=== PATIENT | female | born 2000 | race Two or more races ===

== ENCOUNTER 2020-05-31 11:27 | Observation (INO) | payer SELFPAY ==
[2020-05-31] MEDS ORDERED: PREN-96 PO (13:08)
== END 2020-05-31 13:52 | disposition home or self-care (01) ==
LOC: LDRP 11:27
PROVIDERS: ADMIT Obstetrics & Gynecology; ATTEND Obstetrics & Gynecology
DX: O60.03 Preterm labor without delivery, third trimester (principal); O26.893 Other specified pregnancy related conditions, third trimester; R10.2 Pelvic and perineal pain; Z3A.31 31 weeks gestation of pregnancy
CPT/HCPCS: 59025; 76815; 76817; 81002; G0378

== ENCOUNTER 2020-06-14 11:40 | Observation (INO) | payer SELFPAY ==
[~2020-06-14] VITALS: Ht 30.5 cm; Wt 0.5 kg
[~2020-06-14 11:40] MED LIST: PREN-96 PO
[2020-06-14] MEDS ORDERED: LACTATED RINGER'S 1,000 ML IV ONE (12:30)
[2020-06-14 13:24] LABS: Urine Bacteria MOD /hpf (None Seen); Urine Blood Negative /uL (Negative); Urine Mucus FEW (None Seen); Urine Specific Gravity 1.016 (1.001-1.035); Urine WBC 1 /hpf (0 - 5)
[2020-06-14 13:46] LABS: Basophils # (auto) 0 10 ^3/uL (0-0.2); Basophils % (auto) 0.5 % (0.0-2.0); Eosinophils # (auto) 0 10 ^3/uL (0-0.8); Eosinophils % (auto) 0.5 % (0.0-7.0); Hemoglobin 12.1 g/dL (12.2-16.2); Lymphocytes # (auto) 1.3 10 ^3/uL (0.4-5.4); Lymphocytes % (auto) 26.1 % (10.0-50.0); Mean Corpuscular Hemoglobin 33.6 pg (28.0-32.0); Mean Corpuscular Hgb Conc. 34.6 g/dL (32.0-36.0); Monocytes # (auto) 0.5 10 ^3/uL (0-1.3); Monocytes % (auto) 9.6 % (0.0-12.0); Neutrophils # (auto) 3.1 10 ^3/uL (1.6-8.6); Neutrophils % (auto) 63.3 % (37.0-80.0); Nucleated Red Blood Cells % 0.1 %; Platelet Count (auto) 167 10^3/uL (140-450); Red Cell Distribution Width 13.5 % (11.8-14.3); White Blood Cell 4.9 10^3/uL (4.4-10.8)
[2020-06-14 14:01] LABS: INR 0.92 (0.9-1.15); Partial Thromboplastin Time 24.2 sec (23.0-31.2)
[2020-06-14 14:19] LABS: Albumin 2.2 g/dL (3.4-5.0); Calcium 8.3 mg/dL (8.5-10.1); Potassium 4.2 mmol/L (3.5-5.1)
[2020-06-14 14:24] LABS: BUN/Creatinine Ratio 9.8; Bilirubin, Total 0.2 mg/dL (0.2-1.0); Total Protein 5.9 g/dL (6.4-8.2); Uric Acid 3.1 mg/dL (2.6-6.0)
[2020-06-14] MEDS ORDERED: TERBUTALINE SULFATE 1 MG/ML 1ML VIAL SC ONE (15:28)
[2020-06-14] MEDS: TERBUTALINE SULFATE 1 MG/ML 1ML VIAL SC SCH ×2 (15:31→15:57)
== END 2020-06-14 17:30 | disposition home or self-care (01) ==
LOC: LDRP 11:40
PROVIDERS: ADMIT Specialist; ATTEND Specialist
DX: O13.3 Gestational [pregnancy-induced] hypertension without significant proteinuria, third trimester (principal); Z20.828 Contact with and (suspected) exposure to other viral communicable diseases; O26.893 Other specified pregnancy related conditions, third trimester; R10.2 Pelvic and perineal pain; Z3A.33 33 weeks gestation of pregnancy
CPT/HCPCS: 36415; 59025; 80053; 81001; 81002; 84550; 85025; 85610; 85730; 87426; 96372; G0378; J3105; U0003; 96365

== ENCOUNTER → 2020-07-07 | Outpatient (CLI) | payer MEDICAID ==
[2020-07-07 11:11] LABS: Amphetamine Screen, Urine NEGATIVE (NEGATIVE); Barbiturate Scree,Urine NEGATIVE (NEGATIVE); Benzodiazephine Screen, Urine NEGATIVE (NEGATIVE); Cannabinoid Screen, Urine NEGATIVE (NEGATIVE); Cocaine Screen, Urine NEGATIVE (NEGATIVE); Opiate Scree,Urine NEGATIVE (NEGATIVE); Phencyclidine Screen, Urine NEGATIVE (NEGATIVE)
[2020-07-07 11:29] LABS: Basophils # (auto) 0 10 ^3/uL (0-0.2); Basophils % (auto) 0.6 % (0.0-2.0); Eosinophils # (auto) 0 10 ^3/uL (0-0.8); Eosinophils % (auto) 0.6 % (0.0-7.0); Hematocrit 39.6 % (36.0-46.0); Hemoglobin 13.9 g/dL (12.2-16.2); Lymphocytes # (auto) 1.5 10 ^3/uL (0.4-5.4); Lymphocytes % (auto) 27.1 % (10.0-50.0); Mean Corpuscular Hemoglobin 33.1 pg (28.0-32.0); Mean Corpuscular Hgb Conc. 35.1 g/dL (32.0-36.0); Mean Corpuscular Volume 94.4 fL (80.0-100.0); Monocytes # (auto) 0.5 10 ^3/uL (0-1.3); Monocytes % (auto) 8.2 % (0.0-12.0); Neutrophils # (auto) 3.5 10 ^3/uL (1.6-8.6); Neutrophils % (auto) 63.5 % (37.0-80.0); Nucleated Red Blood Cells % 0.1 %; Platelet Count (auto) 205 10^3/uL (140-450); Red Cell Distribution Width 13.7 % (11.8-14.3); White Blood Cell 5.6 10^3/uL (4.4-10.8)
[2020-07-08 05:07] LABS: RPR Non Reactive (Non Reactive)
== END | disposition home or self-care (01) ==
LOC: LAB 10:24
PROVIDERS: ATTEND Obstetrics & Gynecology
DX: Z34.93 Encounter for supervision of normal pregnancy, unspecified, third trimester (principal); Z31.430 Encounter of female for testing for genetic disease carrier status for procreative management; Z36.9 Encounter for antenatal screening, unspecified; Z72.51 High risk heterosexual behavior; Z3A.36 36 weeks gestation of pregnancy
CPT/HCPCS: 36415; 80307; 81220; 82951; 83036; 84112; 84144; 84702; 85025; 86592; 86703; 86762; 86850; 86900; 86901; 87086; 87340

== ENCOUNTER 2020-07-19 10:22 | Observation (INO) | payer MEDICAID | END 2020-07-19 13:45 | disposition home or self-care (01) | LOC: OB 10:22 → LDRP 13:17 | PROVIDERS: ADMIT Obstetrics & Gynecology; ATTEND Obstetrics & Gynecology | DX: O48.0 Post-term pregnancy (principal); Z3A.40 40 weeks gestation of pregnancy | CPT/HCPCS: 59025; 76818; 81002; 84112; G0378; Q0114 ==

== ENCOUNTER 2020-07-21 11:11 | Observation (INO) | payer MEDICAID | END 2020-07-21 12:33 | disposition home or self-care (01) | LOC: LDRP 11:11 | PROVIDERS: ADMIT Obstetrics & Gynecology; ATTEND Obstetrics & Gynecology | DX: O60.03 Preterm labor without delivery, third trimester (principal); O48.0 Post-term pregnancy; Z3A.40 40 weeks gestation of pregnancy | CPT/HCPCS: 59025; 76818; 81002; G0378 ==

== ENCOUNTER 2020-07-23 10:20 | Observation (INO) | payer MEDICAID | END 2020-07-23 11:45 | disposition home or self-care (01) | LOC: LDRP 10:20 | PROVIDERS: ADMIT Obstetrics & Gynecology; ATTEND Obstetrics & Gynecology | DX: O48.0 Post-term pregnancy (principal); Z3A.40 40 weeks gestation of pregnancy | CPT/HCPCS: 59025; 76818; 81002; G0378 ==

== ENCOUNTER 2020-07-25 16:15 | Inpatient (IN) | payer MEDICAID ==
[~2020-07-25] VITALS: Ht 134.6 cm; Wt 75.7 kg
[2020-07-25] MEDS ORDERED: PHISODERM TOP SOLN 240ML BTL TOP PRN (17:45)
[2020-07-25] MEDS ORDERED: WITCH HAZEL-GLYCERIN PAD TOP PRN (17:45)
[2020-07-25] MEDS ORDERED: LIDOCAINE 2%HCL (LOCAL ANESTH.) INJ 20ML MDV IJ ONE (17:45)
[2020-07-25] MEDS ORDERED: DERMOPLAST 60ML BOTTLE TOP PRN (17:45)
[2020-07-25 18:22] LABS: Basophils # (auto) 0 10 ^3/uL (0-0.2); Basophils % (auto) 0.5 % (0.0-2.0); Eosinophils # (auto) 0 10 ^3/uL (0-0.8); Eosinophils % (auto) 0.6 % (0.0-7.0); Hematocrit 36.7 % (36.0-46.0); Hemoglobin 12.7 g/dL (12.2-16.2); Lymphocytes # (auto) 1.6 10 ^3/uL (0.4-5.4); Lymphocytes % (auto) 23.1 % (10.0-50.0); Mean Corpuscular Hgb Conc. 34.7 g/dL (32.0-36.0); Mean Corpuscular Volume 95.2 fL (80.0-100.0); Monocytes # (auto) 0.6 10 ^3/uL (0-1.3); Monocytes % (auto) 8.9 % (0.0-12.0); Neutrophils # (auto) 4.7 10 ^3/uL (1.6-8.6); Neutrophils % (auto) 66.9 % (37.0-80.0); Platelet Count (auto) 173 10^3/uL (140-450); Red Blood Cells 3.86 10^6/uL (4.0-5.20); Red Cell Distribution Width 14.5 % (11.8-14.3)
[2020-07-25 18:50] LABS: INR 0.89 (0.9-1.15); Partial Thromboplastin Time 26.2 sec (23.0-31.2)
[2020-07-25] MEDS: miSOPROStol 50 MCG per PRE-CUT 1/2 TAB PO PRN (19:38)
[2020-07-25 20:24] LABS: Urine Bacteria FEW /hpf (None Seen); Urine Blood Negative /uL (Negative); Urine Mucus FEW (None Seen); Urine Specific Gravity 1.023 (1.001-1.035); Urine WBC 7 /hpf (0 - 5)
[2020-07-25 20:37] LABS: Alcohol, Urine < 3.0 mg/dL (0-10); Amphetamine Screen, Urine NEGATIVE (NEGATIVE); Barbiturate Scree,Urine NEGATIVE (NEGATIVE); Benzodiazephine Screen, Urine NEGATIVE (NEGATIVE); Cannabinoid Screen, Urine NEGATIVE (NEGATIVE); Cocaine Screen, Urine NEGATIVE (NEGATIVE); Opiate Scree,Urine NEGATIVE (NEGATIVE)
[2020-07-25 20:43] LABS: Phencyclidine Screen, Urine NEGATIVE (NEGATIVE)
[2020-07-26] MEDS: miSOPROStol 50 MCG per PRE-CUT 1/2 TAB PO PRN (02:34)
[2020-07-26] MEDS ORDERED: PROMETHAZINE HCL 25 MG/ML 1ML IM PRN (02:45)
[2020-07-26] MEDS ORDERED: BUTORPHANOL TARTRATE 2 MG/1 ML VIAL IV PRN (02:45)
[2020-07-26] MEDS: LACTATED RINGER'S 1,000 ML IV SCH (02:47)
[2020-07-26] MEDS ORDERED: PENICILLIN G POT 5MIL/D5 50ML 50 ML IV ONE (03:15)
[2020-07-26] MEDS ORDERED: fentaNYL CITRATE 100 MCG/2 ML VL IV ONE (07:00)
[2020-07-26] MEDS ORDERED: LACTATED RINGER'S 1,000 ML IV ONE (07:00)
[2020-07-26] MEDS ORDERED: NALOXONE HCL 0.4 MG/ML VIAL IV ONE (07:00)
[2020-07-26] MEDS ORDERED: ePHEDrine SULFATE 50 MG/ML AMP IV ONE (07:00)
[2020-07-26] MEDS ORDERED: ROPIVACAINE HCL 200 ML EPI SCH ×2 (07:00→07:45)
[2020-07-26] MEDS: PENICILLIN G POTASSIUM 2,500,000 UNITS in D5W 5% 50 ML IV SCH ×3 (08:16→16:00)
[2020-07-26] MEDS ORDERED: LACT. RINGERS/OXYTOCIN 20UNITS 1,000 ML IV ONE (09:45)
[2020-07-26] MEDS ORDERED: TERBUTALINE SULFATE 1 MG/ML 1ML VIAL SC ONE (10:45)
[2020-07-26] MEDS ORDERED: LACT. RINGERS/OXYTOCIN 20UNITS 1,000 ML IV SCH ×2 (10:45)
[2020-07-26] MEDS: ceFAZolin 1GM/50ML 50 ML IV SCH ×2 (10:57→19:00)
[2020-07-26] MEDS ORDERED: ACETAMINOPHEN 325 MG TAB PO ONE (12:00)
[2020-07-26] MEDS ORDERED: LIDOCAINE 2%HCL (LOCAL ANESTH.) INJ 10ml MDV IJ ONE (15:00)
[2020-07-26] MEDS ORDERED: LIDOCAINE 2%HCL (LOCAL ANESTH.) INJ 20ML MDV ONE (15:46)
[2020-07-26] MEDS ORDERED: METHYLERGONOVINE MALEATE 0.2 MG/ML AMP IM ONE (16:26)
[2020-07-26] MEDS ORDERED: miSOPROStol 100 mcg TAB ONE (16:26)
[2020-07-26] MEDS ORDERED: METHYLERGONOVINE MALEATE 0.2 MG/ML AMP IM PRN (17:00)
[2020-07-26 18:23] VITALS: BP 124/68
[2020-07-26] MEDS: DOCUSATE CALCIUM 240 MG CAP PO SCH (18:33)
[2020-07-26] MEDS: IBUPROFEN 600 MG TAB PO PRN (18:33)
[2020-07-26 19:21] VITALS: BP 120/64
[2020-07-26 23:20] VITALS: BP 104/55
[2020-07-27] MEDS: IBUPROFEN 600 MG TAB PO PRN ×3 (01:45→17:49)
[2020-07-27 03:00] VITALS: BP 103/58
[2020-07-27] MEDS: ceFAZolin 1GM/50ML 50 ML IV SCH ×2 (03:04→11:34)
[2020-07-27] MEDS: ACETAMINOPHEN 325 MG TAB PO PRN ×2 (04:57→22:40)
[2020-07-27 06:06] LABS: RPR Non Reactive (Non Reactive)
[2020-07-27 06:45] VITALS: BP 97/52
[2020-07-27 11:30] VITALS: BP 110/63
[2020-07-27] MEDS: DOCUSATE CALCIUM 240 MG CAP PO SCH (12:32)
[2020-07-27 15:30] VITALS: BP 110/72
[2020-07-27 19:15] VITALS: BP 111/62
[2020-07-27 22:52] VITALS: BP 95/60
[2020-07-28] MEDS: IBUPROFEN 600 MG TAB PO PRN (01:29)
[2020-07-28 02:30] VITALS: BP 95/58
[2020-07-28 06:45] VITALS: BP 103/55
[2020-07-28] MEDS: DOCUSATE CALCIUM 240 MG CAP PO SCH (10:06)
[2020-07-28 11:00] VITALS: BP 106/77
[2020-07-28 11:47] VITALS: BP 106/77
== END 2020-07-28 11:47 | disposition home or self-care (01) | DRG 560 ==
LOC: LDRP 16:15
PROVIDERS: ADMIT Obstetrics & Gynecology; ATTEND Obstetrics & Gynecology
PROC: 3E0P7VZ Introduction of Hormone into Female Reproductive, Via Natural or Artificial Opening (ICD-10-PCS; 2020-07-25)
PROC: 10E0XZZ Delivery of Products of Conception, External Approach (ICD-10-PCS; principal; 2020-07-26)
PROC: 3E033VJ Introduction of Other Hormone into Peripheral Vein, Percutaneous Approach (ICD-10-PCS; 2020-07-26)
PROC: 0W8NXZZ Division of Female Perineum, External Approach (ICD-10-PCS; 2020-07-26)
PROC: 3E0R3BZ Introduction of Anesthetic Agent into Spinal Canal, Percutaneous Approach (ICD-10-PCS; 2020-07-26)
PROC: 00HU33Z Insertion of Infusion Device into Spinal Canal, Percutaneous Approach (ICD-10-PCS; 2020-07-26)
PROC: 0KQM0ZZ Repair Perineum Muscle, Open Approach (ICD-10-PCS; 2020-07-26)
DX: O48.0 Post-term pregnancy (principal); Z37.0 Single live birth; Z3A.41 41 weeks gestation of pregnancy; O70.1 Second degree perineal laceration during delivery; Z20.822 Contact with and (suspected) exposure to COVID-19
CPT/HCPCS: 59025; 59409; 62282; 80307; 81001; 81002; 85610; 85730; 86592; 86850; 86900; 86901; 87426; 94760; 96360; 96361; 96365; 96366; 96372; 96374; G0378; J0690; J2001; J2540; J2590; J7060